=== PATIENT | female | born 1995 | race Caucasian/White ===

== ENCOUNTER 2016-12-26 20:05 | Emergency (ER) | payer OTHER, BC ==
--- NOTE | ~2016-12-26 | ER ---
PATIENT'S NAME: MARIEL FIORE [facility] AGE: 21 Y [address] ROOM: [place] [address] LOCATION: ED ADMIT DATE: 12/26/2016 ER/Outpatient Report DISCHARGE DATE: 12/26/2016 FAMILY PHYSICIAN: Physician, Unknown ATTENDING PHYSICIAN: Tashi Parker Time of Arrival: 2005 hours. Time of Evaluation: 2020 hours. CHIEF COMPLAINT: Low back pain. HISTORY OF PRESENT ILLNESS: This is a 21-year-old female who presents to ER with low back pain. She states this morning she pulled off a heavy box off a shelf. She states that ended up falling to the floor and then when she went to pick it back up to put it back on the shelf, she felt a pull in her lower back. She states ever since then she has been having increased pain. She describes it is sharp and stabbing in nature. It does not radiate anywhere. It does not go down her legs, up her back, or into her stomach. She was evaluated at [facility]. She states they did give her a shot of something that she did not know what the name of it was and gave her prescriptions. 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 She states her back pain has continued to get worse and so instead of going back to the clinic like they recommended, she thought she should come here to be evaluated here in [place]. She has had no troubles with bowel movements. No troubles with urination. No fever or chills. No other problems like this before. ALLERGIES: NO KNOWN ALLERGIES. MEDICATIONS: Amoxicillin. PAST MEDICAL HISTORY: Cholecystectomy. SOCIAL HISTORY: Denies smoking, drug, or alcohol use. REVIEW OF SYSTEMS: All systems were reviewed and were negative with the exception of those discussed in the HPI. PATIENT'S NAME: MARIEL FIORE [facility] AGE: 21 Y [address] ROOM: [place] [address] LOCATION: ED ADMIT DATE: 12/26/2016 ER/Outpatient Report DISCHARGE DATE: 12/26/2016 FAMILY PHYSICIAN: Physician, Unknown ATTENDING PHYSICIAN: Tashi Parker PHYSICAL EXAMINATION: VITAL SIGNS: Weight 81.3 kg taken, blood pressure is 122/70, pulse 90, respirations 16, temperature 98.6 degrees tympanically, and saturations 96% on room air. [place] Coma Score is 15. GENERAL: Alert, calm, well-developed, 21-year-old, in mild distress. LUNGS: Clear to auscultation bilaterally. No wheezes or crackles. HEART: Regular rate and rhythm. ABDOMEN: Soft. It is nontender. She has good bowel sounds throughout. MUSCULOSKELETAL: She does have muscular spasm noted to her paraspinous muscles in her lumbar spine area. The patient is able to lay flat and bring her knees up, however, she does have difficulty with straight leg test bilaterally. She has good sensation bilaterally to lower extremities. No numbness or tingling noted. LABORATORY DATA AND X-RAYS: None were done. IMPRESSION: Low back sprain and strain. ASSESSMENT AND PLAN: We did give the patient a shot of Toradol and Valium intramuscularly here in the ER, which did improve her pain. I am going to rewrite her prescriptions for prednisone and Valium to use as directed. She needs to use ice or heat whatever feels best. Do some gentle stretches. We did give her recommendations on how to lay with pillows for support of her back. She needs to follow up with her primary care physician if she is not improving. The patient and the patient's understand and agree with care. ANNI PLEITEZ PA-C FOR DO JADEN HEADLEY/merlin /[id number] d: t: 01/03/17 1414, OUTPATIENT REPORT
[2016-12-26 21:00] LABS: BILIRUBIN URINE NEGATIVE (NEGATIVE); BLOOD URINE 10 /UL (NEGATIVE); COLOR URINE YELLOW (YELLOW); GLUCOSE URINE NEGATIVE (NEGATIVE); KETONE URINE NEGATIVE (NEGATIVE); LEUKOCYTES URINE NEGATIVE /UL (NEGATIVE); NITRITE URINE NEGATIVE (NEGATIVE); PROTEIN URINE NEGATIVE (NEGATIVE); SPEC GRAVITY URINE 1.015 (1.003-1.035); TURBIDITY URINE 4+ (CLEAR); UROBILINOGEN URINE NORMAL (NORMAL)
[2016-12-26 21:15] LABS: AMORPHOUS URINE 3+ (NEGATIVE); BACTERIA URINE NEGATIVE (NEGATIVE); EPITHELIAL URINE 0-2 #/HPF (NEGATIVE); RBC URINE RARE #/HPF (NEGATIVE); WBC URINE RARE #/HPF (NEGATIVE)
== END 2016-12-26 22:08 | disposition disaster alternative care site (69) ==
LOC: GMED 20:05
PROVIDERS: Emergency Medicine
DX: S39.012A Strain of muscle, fascia and tendon of lower back, initial encounter (principal); Z79.2 Long term (current) use of antibiotics; Z90.49 Acquired absence of other specified parts of digestive tract; X50.0XXA Overexertion from strenuous movement or load, initial encounter
CPT/HCPCS: J1885; J3360